=== PATIENT | female | born 1940 | race Caucasian/White ===

== ENCOUNTER 2019-02-09 12:04 | Inpatient (IN) ==
[2019-02-09] MEDS ORDERED: 0.9 % Sodium Chloride 500 ML IVC ONE (12:10)
[2019-02-09] MEDS ORDERED: Insulin Regular, Human 100 UNIT/ML SQ ONE (12:12)
--- NOTE | 2019-02-09 12:13 | Emergency Department Note ---
Disposition Clinical Impression: Hyperglycemia Dementia Qualifiers: Dementia type: unspecified type Dementia behavioral disturbance: without behavioral disturbance Qualified Code(s): F03.90 - Unspecified dementia without behavioral disturbance Disposition: Admitted As Inpatient Condition: Good Referrals: NONE,PCP [Primary Care Provider] - Forms: ED Satisfaction Letter, Work/School Release Time of Disposition: 13:08 General Adult HPI - General Chief complaint: ED General Medical Stated complaint: High glucose Time Seen by Provider: 02/09/19 12:09 Source: patient, EMS Mode of arrival: EMS Limitations: physical limitation (Dementia) Nursing Notes Reviewed: Yes Vital Signs Reviewed: Yes - History of Present Illness HPI Narrative: Patient presents by EMS with report that she had to be brought in because she "cannot live by herself" due to dementia. Her roommate is being brought in for shortness of breath and elevated blood sugar and she would not be able to care for herself. They did find that she to have a blood sugar reading of 580 and have brought her in for evaluation. When she arrives here she states that "I feel pretty good" but that yesterday she was "weak". She denies any other specific complaints. She denies headache or trouble with vision. She denies chest pain or palpitations. She does report occasional cough but is nonproductive. She denies any associated chest pain, fevers or chills. She denies any abdominal pain but pupils are for up to show bandage over a chronic right lateral abdominal wound. She is able to explain this is after surgery she had 5 months ago and she has been followed for a nonhealing area of lateral aspect of her abdominal incision. She denies nausea, vomiting or diarrhea. She does admit to increased thirst and increased urination. She is not having dysuria or blood in the urine. She believes she is been on her normal medicines but cannot say what any of them are. She relates that she has been having "trouble taking care of of her Khris". - Related Data Home Medications Medication Instructions Recorded Confirmed Unable To Obtain [Unable to Obtain] 06/02/17 06/02/17 Allergies Allergy/AdvReac Type Severity Reaction Status Date / Time No Known Allergies Allergy Verified 05/07/17 19:19 All systems ED: reviewed and negative except as stated. Past Medical History - Past Medical History Attestation: Yes The following information was validated with the patient. Source: patient, old records reviewed, nursing notes reviewed Medical history: Reports: diabetes, hyperlipidemia, hypertension, peripheral artery disease Surgical history: Reports: cholecystectomy, other (Right side infection with drainage and wound care), LE stent (s) Psychiatric history: Reports: no psych history - Social History Smoking Status: Never smoker Smokeless Tobacco Status: No Alcohol use: Reports: none Drug use: Reports: none Physical Exam - General Limitations: physical limitation (Dementia) General appearance: alert, in no apparent distress - Head Head exam: atraumatic, normocephalic, normal inspection - Eye Eye exam: Present: normal appearance, PERRL, EOMI - ENT ENT exam: normal exam, normal oropharynx, mucous membranes moist - Neck Neck exam: Present: normal inspection, full ROM, trachea midline - Chest Chest inspection: Present: normal inspection, symmetric chest wall rise - Respiratory Respiratory exam: Present: normal lung sounds bilaterally. Absent: respiratory distress, wheezes, prolonged expiratory phase - Cardiovascular Cardiovascular exam: Present: regular rate, normal rhythm, normal heart sounds. Absent: tachycardia - Abdominal Exam Abdominal exam: Present: soft, Non-Tender, normal bowel sounds, other (Patient has a 1 cm opening with a yellow clearish drainage from the lateral aspect of her lateral right abdominal horizontal incision. She has a bandage over this area affixed with tape.). Absent: tenderness, distention, guarding, rebound, rigidity, Hernandez's sign, tenderness at McBurney's Point - Extremities Exam Extremities exam: Present: normal inspection, full ROM, normal capillary refill. Absent: tenderness, pedal edema, calf tenderness - Expanded Lower Extremity Exam Neurovascular/Tendon exam: Present: normal capillary refill Gait: not tested/not observed - Back Exam Back exam: Present: normal inspection, full ROM. Absent: tenderness - Neurological Exam Neurological exam: Present: alert, CN II-XII intact - Psychiatric Psychiatric exam: Present: normal affect, normal mood. Absent: agitated, anxious - Skin Skin exam: Present: warm, dry, intact, normal color. Absent: diaphoresis, p allor Course Course Narrative: Patient is started on hydration and basic metabolic evaluation is ordered for labs and a urinalysis. Given her elevated blood sugar we started IV fluids and a dose of insulin. She will likely need observation for control of her diabetes as well as social work administrator evaluation. 1315: With return of all testing, care is discussed with Dr. Menjivar and verbal orders have been obtained for her observation and social service consultation. Vital Signs Temperature 98.1 F 02/09/19 12:09 Pulse Rate 70 02/09/19 12:09 Respiratory Rate 16 02/09/19 12:09 Blood Pressure 171/68 02/09/19 12:09 O2 Sat by Pulse Oximetry 99 02/09/19 12:09 Temperature 98.1 F 02/09/19 12:09 Pulse Rate 70 02/09/19 12:09 Respiratory Rate 16 02/09/19 12:09 Blood Pressure 171/68 02/09/19 12:09 O2 Sat by Pulse Oximetry 99 02/09/19 12:09 Oxygen Delivery Oxygen Delivery Room Air Medical Decision Making - Medical Records Medical records reviewed: Yes I reviewed the patient's medical records. - Lab Data Lab results reviewed: Yes I reviewed the patient's lab results. Result diagrams: 02/09/19 12:27 02/09/19 12:27 Lab Results 02/09/19 02/09/19 02/09/19 Range/Units 12:27 12:27 12:27 WBC 6.1 (4.3-11.1) K/mcL RBC 4.57 (3.82-4.97) M/mcL Hgb 12.6 (11.5-15.4) g/dL Hct 38.3 (35.3-44.9) % MCV 83.8 (83.0-100.0) fL MCH 27.6 L (28.0-33.3) pg MCHC 32.9 (31.6-35.5) g/dL RDW 14.7 H (11.5-14.5) % Plt Count 180 (140-400) K/mcL MPV 11.9 (9.4-12.4) fL Immature Gran % 0.2 (0-4) % Seg Neutrophils % 66.2 % Lymphocytes % 24.2 % Monocytes % 7.1 % Eosinophils % 1.8 % Basophils % 0.5 % Neutrophils # 4.0 (1.6-8.9) K/mcL Lymphocytes # 1.5 (0.6-4.6) K/mcL Monocytes # 0.4 (0.0-1.3) K/mcL Eosinophils # 0.1 (0.0-0.6) K/mcL Basophils # 0.0 (0.0-0.2) K/mcL VBG pH (7.32-7.42) pH Units VBG pCO2 (41-51) mmHg VBG pO2 (25-50) mmHg VBG HCO3 (21-27) mEq/L Sodium 129 L (136-145) mEq/L Potassium 4.3 (3.5-5.1) mEq/L Chloride 93 L (98-107) mEq/L Carbon Dioxide 27 (23-29) mEq/L BUN 15 (8-23) mg/dL Creatinine 1.16 (0.60-1.20) mg/dL Est GFR ( Amer) 55 L (> 60) Est GFR (Non-Af Amer) 45 L (> 60) BUN/Creatinine Ratio 13 (6-26) Glucose 537 H* (70-105) mg/dL Calculated Osmolality 293 (280-300) Calcium 9.5 (8.6-10.3) mg/dL Beta-Hydroxybutyric Acd 0.39 H (0.02-0.27) mmol/L 02/09/19 Range/Units 12:36 WBC (4.3-11.1) K/mcL RBC (3.82-4.97) M/mcL Hgb (11.5-15.4) g/dL Hct (35.3-44.9) % MCV (83.0-100.0) fL MCH (28.0-33.3) pg MCHC (31.6-35.5) g/dL RDW (11.5-14.5) % Plt Count (140-400) K/mcL MPV (9.4-12.4) fL Immature Gran % (0-4) % Seg Neutrophils % % Lymphocytes % % Monocytes % % Eosinophils % % Basophils % % Neutrophils # (1.6-8.9) K/mcL Lymphocytes # (0.6-4.6) K/mcL Monocytes # (0.0-1.3) K/mcL Eosinophils # (0.0-0.6) K/mcL Basophils # (0.0-0.2) K/mcL VBG pH 7.42 (7.32-7.42) pH Units VBG pCO2 42 (41-51) mmHg VBG pO2 55 H (25-50) mmHg VBG HCO3 27 (21-27) mEq/L Sodium (136-145) mEq/L Potassium (3.5-5.1) mEq/L Chloride (98-107) mEq/L Carbon Dioxide (23-29) mEq/L BUN (8-23) mg/dL Creatinine (0.60-1.20) mg/dL Est GFR ( Amer) (> 60) Est GFR (Non-Af Amer) (> 60) BUN/Creatinine Ratio (6-26) Glucose (70-105) mg/dL Calculated Osmolality (280-300) Calcium (8.6-10.3) mg/dL Beta-Hydroxybutyric Acd (0.02-0.27) mmol/L
[2019-02-09] MEDS ORDERED: 0.9 % Sodium Chloride 1,000 ML IVC SCH ×2 (12:15→16:20)
[2019-02-09 12:35] LABS: Basophils % 0.5 %; Eosinophils # 0.1 K/mcL (0.0-0.6); Eosinophils % 1.8 %; Hematocrit 38.3 % (35.3-44.9); Hemoglobin 12.6 g/dL (11.5-15.4); Immature Granulocytes % 0.2 % (0-4); Lymphocytes # 1.5 K/mcL (0.6-4.6); Lymphocytes % 24.2 %; Mean Corpuscular HGB Conc 32.9 g/dL (31.6-35.5); Mean Corpuscular Hemoglobin 27.6 pg (28.0-33.3); Mean Corpuscular Volume 83.8 fL (83.0-100.0); Mean Platelet Volume 11.9 fL (9.4-12.4); Monocytes # 0.4 K/mcL (0.0-1.3); Monocytes % 7.1 %; Platelet Count 180 K/mcL (140-400); Red Blood Count 4.57 M/mcL (3.82-4.97); Red Cell Distribution Width 14.7 % (11.5-14.5); Segmented Neutrophils % 66.2 %; White Blood Count 6.1 K/mcL (4.3-11.1)
[2019-02-09 12:40] LABS: VBG HCO3 27 mEq/L (21-27); VBG PCO2 42 mmHg (41-51); VBG PH 7.42 pH Units (7.32-7.42); VBG PO2 55 mmHg (25-50)
[2019-02-09 13:05] LABS: Calcium 9.5 mg/dL (8.6-10.3); Potassium 4.3 mEq/L (3.5-5.1)
[2019-02-09 15:32] LABS: Bilirubin,Urine Negative (Negative); Blood,Urine Trace-intact (Negative); Clarity,Urine Cloudy (Clear); Color,Urine Yellow (Yellow); Glucose,Urine (UA) 500 mg/dL (Normal); Ketones,Urine Negative (Negative); Leukocyte Esterase,Urine Negative (Negative); Nitrite,Urine Negative (Negative); Protein,Urine 30 mg/dL (Neg-Trace); Specific Gravity,Urine 1.015 (1.010-1.025); Urobilinogen,Urine Normal (Normal)
[2019-02-09 15:38] LABS: RBC,Urine 0-3 per hpf (0-3); Squamous Epithelial Cell,Urine Many per lpf (None-Few)
[2019-02-09 15:39] LABS: Amorphous Sediment,Urine Moderate (Few); Bacteria,Urine Many per hpf (None-Few); Mucus,Urine Few (Few)
[2019-02-09] MEDS ORDERED: Ondansetron ODT 4 MG TAB.RAPDIS SL PRN (16:20)
[2019-02-09] MEDS ORDERED: MOM Conc 10 ML UD.LIQ PO PRN (16:20)
[2019-02-09] MEDS ORDERED: D5% in Water 1,000 ML IVC PRN (16:20)
[2019-02-09] MEDS ORDERED: Dextrose Gel 15 GM/37.5 ML TUBE PO PRN ×2 (16:20)
[2019-02-09] MEDS ORDERED: Mag Hydrox/Al Hydrox/Simeth 30 ML UDC PO PRN (16:20)
[2019-02-09] MEDS ORDERED: *HR* Dextrose 50 % in Water (Vial) 50 ML VIAL IVP PRN (16:20)
[2019-02-09] MEDS ORDERED: Naloxone 0.4 MG/ML INJ IVP PRN (16:20)
[2019-02-09] MEDS: 0.45 % Sodium Chloride w/KCl 20 MEQ/1,000 ML MLS IVC SCH (17:58)
[2019-02-09] MEDS: Insulin LISPRO 300 UNITS/3 ML VIAL SQ SCH (18:03)
[2019-02-09 21:18] LABS: Estimated Average Glucose 398 mg/dl
[2019-02-10 07:32] LABS: Basophils % 0.6 %; Eosinophils # 0.2 K/mcL (0.0-0.6); Eosinophils % 3.2 %; Hematocrit 39.7 % (35.3-44.9); Hemoglobin 12.6 g/dL (11.5-15.4); Immature Granulocytes % 0.2 % (0-4); Lymphocytes # 1.5 K/mcL (0.6-4.6); Lymphocytes % 30.2 %; Mean Corpuscular HGB Conc 31.7 g/dL (31.6-35.5); Mean Corpuscular Hemoglobin 27.3 pg (28.0-33.3); Mean Corpuscular Volume 85.9 fL (83.0-100.0); Mean Platelet Volume 12.1 fL (9.4-12.4); Monocytes # 0.4 K/mcL (0.0-1.3); Monocytes % 7.9 %; Neutrophils # 2.9 K/mcL (1.6-8.9); Platelet Count 163 K/mcL (140-400); Red Blood Count 4.62 M/mcL (3.82-4.97); Segmented Neutrophils % 57.9 %; White Blood Count 4.9 K/mcL (4.3-11.1)
[2019-02-10 07:58] LABS: BUN/Creatinine Ratio 10 (6-26); Blood Urea Nitrogen 10 mg/dL (8-23); Calcium 8.8 mg/dL (8.6-10.3); Carbon Dioxide 27 mEq/L (23-29); Chloride 99 mEq/L (98-107); Glucose 343 mg/dL (70-105); Osmolality,Calculated 289 (280-300); Potassium 4.2 mEq/L (3.5-5.1); Sodium 133 mEq/L (136-145); eGFR For African Americans > 60 (> 60); eGFR For Non-African Americans 55 (> 60)
[2019-02-10 08:00] LABS: Chol/HDL Ratio 6.2 (0-4.9); Cholesterol 203 mg/dL (< 200); HDL Cholesterol 33 mg/dL (40-59); Magnesium 1.5 mg/dL (1.6-2.6); Triglycerides 480 mg/dL (< 150)
[2019-02-10] MEDS: Insulin LISPRO 300 UNITS/3 ML VIAL SQ SCH ×3 (08:56→16:59)
[2019-02-10] MEDS: 0.45 % Sodium Chloride w/KCl 20 MEQ/1,000 ML MLS IVC SCH ×2 (09:03→20:35)
[2019-02-10] MEDS ORDERED: *HR* Labetalol 100 MG/20 ML MDV IVP ONE (15:09)
--- NOTE | 2019-02-10 15:34 | Internal Med History&Physical ---
Date of Encounter: 02/10/19 Time of Encounter: 15:05 Assessment and Plan (1) Hyperglycemia Current visit: Yes Status: Acute Blood sugar was 537 in emergency room. Ketosis without acidosis was noted. Home medication list is not available at this time. She will be started on IV fluids and basal insulin with Accu-Cheks and SSI. (2) DM type 2 (diabetes mellitus, type 2) Current visit: Yes Status: Chronic Poorly controlled. Hemoglobin A1c was 15.5% in emergency room. Start basal insulin and Accu-Cheks with SSI. Home medication list will be obtained. Qualifiers: Diabetes mellitus roasterman insulin use: unspecified mcc insulin use status Diabetes mellitus complication status: without complication Qualified Code(s): E11.9 - Type 2 diabetes mellitus without complications (3) Hyponatremia Current visit: Yes Status: Acute Pseudohyponatremia from hyperglycemia. Expect normalization of sodium with normalization of blood sugar. (4) Hypomagnesemia Current visit: Yes Status: Acute Magnesium level slightly low at 1.5. Supplemental magnesium will be given. (5) Low vitamin D level Current visit: Yes Status: Acute Vitamin D level returned low at 7. Supplemental vitamin D will be ordered. (6) Dementia Current visit: Yes Status: Acute MMSE exam will be ordered. Qualifiers: Dementia type: unspecified type Dementia behavioral disturbance: without behavioral disturbance Qualified Code(s): F03.90 - Unspecified dementia with out behavioral disturbance (7) Azotemia Current visit: Yes Status: Acute BUN and creatinine were 15 and 1.16 respectively in ER with estimated GFR 45. IV fluids have been ordered. (8) Hypertension Current visit: Yes Status: Chronic Poorly controlled at present with most recent blood pressure 196/91. IV labetalol has been ordered. Home medication list will be obtained. Qualifiers: Hypertension type: essential hypertension Qualified Code(s): I10 - Essential (primary) hypertension Internal Medicine - H&P: HPI Chief complaint: Weakness, hyperglycemia, right upper quadrant pain Admitted From: Emergency Dept Plans for Post Hospital Care: Home History of present illness: Ms. Cortez is a 78 year old female who came to emergency room after developing worsening right upper quadrant discomfort, weakness, and hyperglycemia. She was evaluated and found to have blood sugar 537 MG/DL and significant bacteriuria. She was admitted to [facility] floor for ongoing care needs. She has significant dementia and is a fair historian at best. Her significant other supplies some of the history. She had laparoscopic cholecystectomy January 2015 followed by right upper quadrant abscess. 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 The fistula August initially showed significant healing but has reopened since discharge from the SNF 3 months ago. She denies disorders of her liver or exocrine pancreas. Past Med Surg Social Fam HX - Past Medical History Medical history: diabetes, hyperlipidemia, hypertension, peripheral artery disea se Additional medical history: PT IS UNABLE TO GIVE ACURATE MEDICAL HISTORY. Psychiatric history: no psych history - Past Surgical History Surgical History: cholecystectomy, other (Right side infection with drainage and wound care), LE stent (s) Additional surgical history: UNKNOWN - Social History Smoking Status: Never smoker Smokeless Tobacco Status: No Alcohol use: none Drug use: none Internal Medicine - H&P: Meds Unable To Obtain [Unable to Obtain] 06/02/17 [History] Allergy/AdvReac Type Severity Reaction Status Date / Time No Known Allergies Allergy Verified 05/07/17 19:19 All Systems PM: A 10-system review of systems was performed and is negative for pertinent findings except as documented above in the HPI. Review of systems: Gen.: She states her weight is been stable for several months Cardiovascular: She has history of hypertension. She had right carotid endarterectomy August 2016. She has bilateral renal artery stenosis with stents placed. She denies hypertension heart failure DVT or pulmonary embolus Respiratory: She is a lifelong nonsmoker and denies chronic lung disease GI: As per history of present illness : She has chronic kidney disease stage III. She denies other kidney or bladder disorders Neurologic: She has dementia. She denies large distribution strokes or seizures Endocrine she was diagnosed with DM 2 many years ago but does not recall the exact date. She has hyperlipidemia but denies thyroid disease Hematology/oncology: She has had anemia in the past. She denies internal malignancies or other blood disorders. Psychiatric: She has depression but denies anxiety other mental health issues [place] skeletal: She has DJD but denies gout or other bone joint or muscle disorders. - Constitutional Vitals: Temp Pulse Resp BP Pulse Ox 98.3 F 98 18 196/91 95 02/10/19 15:10 02/10/19 15:10 02/10/19 15:10 02/10/19 15:11 02/10/19 15:10 Exam: Gen.: She is a well-developed well-nourished female resting comfortably in bed who appears in no acute distress HEENT: Head is atraumatic and normocephalic. Eyes: EOMI. There is no scleral icterus. Mouth: Mucosa is moist. Neck: Supple and nontender. There is no thyromegaly or adenopathy noted. Heart: Regular without murmurs gallops or ectopics Lungs: No wheezes or crackles are heard. Abdomen: Soft and nontender. No masses or guarding are noted. She has gauze bandage covering a fistulous opening in the skin in her right upper anterolateral abdominal area. There is no purulent drainage seen. There is no significant surrounding erythema. Extremities: There is no cyanosis edema or clubbing noted. Dorsalis pedis and posterior tibial pulses are trace to 1+ palpable bilaterally. Neurologic: Mental status: She is talkative and a fair historian at best. She does not remember several details of her history. She cannot do simple money math. Cranial nerves: Smile is symmetric. Forehead wrinkles bilaterally. Tongue protrudes midline. EOMI. Motor: There is no pronator drift. Cerebellar: Finger to nose is intact bilaterally. Skin: Warm and dry Internal Med - H&P Results - Labs CBC & Chem 7: 02/10/19 07:03 02/10/19 07:03 Labs: Short CBC 02/10/19 Range/Units 07:03 WBC 4.9 (4.3-11.1) K/mcL Hgb 12.6 (11.5-15.4) g/dL Hct 39.7 (35.3-44.9) % Plt Count 163 (140-400) K/mcL Neutrophils # 2.9 (1.6-8.9) K/mcL BMP 02/10/19 07:03 Sodium 133 L Potassium 4.2 Chloride 99 Carbon Dioxide 27 BUN 10 Creatinine 0.98 Glucose 343 H Calcium 8.8 Urine 02/09/19 Range/Units 15:15 Urine Color Yellow (Yellow) Urine Clarity Cloudy A (Clear) Urine pH 6.0 (5.0-8.0) pH Units Ur Specific [place] 1.015 (1.010-1.025) Urine Protein 30 H (Neg-Trace) mg/dL Urine Glucose (UA) 500 H (Normal) mg/dL - ABG Interpretation ABG results: 02/09/19 12:36 VBG pH 7.42 VBG pCO2 42 VBG pO2 55 H VBG HCO3 27
[2019-02-10] MEDS: Magnesium Oxide 400 MG TABLET PO SCH (16:56)
[2019-02-10] MEDS: Cholecalciferol (D-3) 1,000 UNIT (25MCG) TABLET PO SCH (16:56)
[2019-02-10] MEDS: Insulin DETEMIR 100 UNIT/ML X5UNITS SQ SCH (20:39)
[2019-02-11] MEDS ORDERED: *HR* Labetalol 100 MG/20 ML MDV IVP ONE (00:37)
[2019-02-11 05:59] LABS: Basophils % 0.3 %; Eosinophils % 0.5 %; Hematocrit 38.9 % (35.3-44.9); Hemoglobin 12.5 g/dL (11.5-15.4); Immature Granulocytes % 0.3 % (0-4); Lymphocytes % 17.2 %; Mean Corpuscular HGB Conc 32.1 g/dL (31.6-35.5); Mean Corpuscular Hemoglobin 27.8 pg (28.0-33.3); Mean Corpuscular Volume 86.4 fL (83.0-100.0); Mean Platelet Volume 12.8 fL (9.4-12.4); Monocytes # 0.4 K/mcL (0.0-1.3); Neutrophils # 4.4 K/mcL (1.6-8.9); Platelet Count 185 K/mcL (140-400); Red Cell Distribution Width 14.8 % (11.5-14.5); Segmented Neutrophils % 75.7 %; White Blood Count 5.9 K/mcL (4.3-11.1)
[2019-02-11 06:30] LABS: Alanine Aminotransferase 21 Units/L (7-52); Albumin 3.5 g/dL (3.5-5.7); Alkaline Phosphatase 95 Units/L (34-104); Aspartate Amino Transferase 12 Units/L (13-39); BUN/Creatinine Ratio 13 (6-26); Bilirubin,Total 0.3 mg/dL (0.3-1.0); Blood Urea Nitrogen 14 mg/dL (8-23); Calcium 9.3 mg/dL (8.6-10.3); Carbon Dioxide 28 mEq/L (23-29); Chloride 96 mEq/L (98-107); Globulin 3.6 g/dL (2.4-3.5); Glucose 377 mg/dL (70-105); Osmolality,Calculated 288 (280-300); Potassium 4.7 mEq/L (3.5-5.1); Sodium 131 mEq/L (136-145); Total Protein 7.1 g/dL (6.4-8.9); eGFR For African Americans > 60 (> 60); eGFR For Non-African Americans 51 (> 60)
[2019-02-11] MEDS: Cholecalciferol (D-3) 1,000 UNIT (25MCG) TABLET PO SCH (08:13)
[2019-02-11] MEDS: Insulin LISPRO 300 UNITS/3 ML VIAL SQ SCH ×3 (08:13→17:14)
[2019-02-11] MEDS: Magnesium Oxide 400 MG TABLET PO SCH (08:13)
[2019-02-11] MEDS: Insulin DETEMIR 100 UNIT/ML X5UNITS SQ SCH ×2 (08:18→19:53)
--- NOTE | 2019-02-11 11:22 | Internal Med Progress Note ---
Date of Encounter: 02/11/19 Time of Encounter: 11:10 - Assessment and plan (1) Hyperglycemia Current Visit: Yes Status: Acute Assessment and plan: February 11. Blood sugars have improved but are still above desirable level. Increase Levemir to 20 units twice a day. (2) DM type 2 (diabetes mellitus, type 2) Current Visit: Yes Status: Chronic Assessment and plan: February 11. As above Qualifiers: Diabetes mellitus nursing home insulin use: unspecified nursing home insulin use status Diabetes mellitus complication status: without complication Qualified Code(s): E11.9 - Type 2 diabetes mellitus without complications (3) Hyponatremia Current Visit: Yes Status: Acute Assessment and plan: February 11. Resolving as expected with improved blood sugars. Continue to monitor. (4) Hypomagnesemia Current Visit: Yes Status: Acute Assessment and plan: February 11. Continue magnesium oxide. (5) Low vitamin D level Current Visit: Yes Status: Acute Assessment and plan: February 11. Continue supplemental vitamin D. (6) Dementia Current Visit: Yes Status: Acute Assessment and plan: February 11. MMSE score of 13/30. Qualifiers: Dementia type: unspecified type Dementia behavioral disturbance: without behavioral disturbance Qualified Code(s): F03.90 - Unspecified dementia without behavioral disturbance (7) Azotemia Current Visit: Yes Status: Acute Assessment and plan: February 11. Stable. Continue to monitor renal indices. (8) Hypertension Current Visit: Yes Status: Chronic Assessment and plan: February 11. Home medication list obtained and reviewed. Restart metoprolol 25 mg twice a day and diltiazem 120 mg daily. Qualifiers: Hypertension type: essential hypertension Qualified Code(s): I10 - Essential (primary) hypertension (9) Fistula Current Visit: Yes Status: Chronic Assessment and plan: February 11. I spoke with Dr. Marin's office staff about treatment plan. She had a fistulogram October 2018 showing the internal fistula ending in soft tissue. Attempted fistulectomy surgery October 2018 unsuccessful. Follow-up with surgeon as directed. (10) Choledocholithiasis Current Visit: Yes Status: Acute Assessment and plan: February 11. MRI/MRCP today showed multiple filling defects in the common bile duct measuring up to 5 mm compatible with choledocholithiasis but no significant biliary ductal dilatation seen. Her surgeon can discuss treatment options. - Subjective Interval history: February 11. She has no new complaints. - Constitutional Vitals: Temp Pulse Resp BP Pulse Ox 98.2 F 89 18 148/73 94 02/11/19 07:48 02/11/19 07:48 02/11/19 07:48 02/11/19 07:48 02/11/19 07:48 Exam: She is resting comfortably in bed and appears in no acute distress. Her affect is bright and cheerful. I reviewed her MRI report, medications, and lab results. Internal Medicine: Result - Labs CBC & Chem 7: 02/11/19 05:14 02/11/19 05:14 Labs: Short CBC 02/11/19 Range/Units 05:14 WBC 5.9 (4.3-11.1) K/mcL Hgb 12.5 (11.5-15.4) g/dL Hct 38.9 (35.3-44.9) % Plt Count 185 (140-400) K/mcL Neutrophils # 4.4 (1.6-8.9) K/mcL BMP 02/11/19 05:14 Sodium 131 L Potassium 4.7 Chloride 96 L Carbon Dioxide 28 BUN 14 Creatinine 1.04 Glucose 377 H Calcium 9.3 Liver Function 02/11/19 Range/Units 05:14 Total Bilirubin 0.3 (0.3-1.0) mg/dL AST 12 L (13-39) Units/L ALT 21 (7-52) Units/L Alkaline Phosphatase 95 (34-104) Units/L Albumin 3.5 (3.5-5.7) g/dL - Impressions Impressions Abdomen MRI 02/11/19 06:30 IMPRESSION: 1. Multiple filling defects within the distal common bile duct measuring up to 5 mm compatible with choledocholithiasis. No significant biliary ductal dilatation. 2. 8 mm cystic lesion along the pancreatic body is likely unchanged from prior CT in 2015. This is nonspecific but could represent a side branch IPMN. The findings were sent to the [facility]iology [facility] at 7:50 am on 02/11/2019 to be communicated to a licensed caregiver. D/ / Dustin Vo MD / Dustin Vo MD Interpreting Provider: Dustin Vo MD Consult Discharge Plan - Plan Referrals: NONE,PCP [Primary Care Provider] - 1 week
[2019-02-11] MEDS: Diltiazem CD (24hr) 120 MG CAPSULE PO SCH (12:39)
--- NOTE | 2019-02-11 20:53 | Emergency Department Note ---
START Narrative - START START: I was called to the bedside on the inpatient unit to evaluate the patient who reportedly had a fall. Patient was in bed and she was arguing with family members. She tried to get out of the bed and her footing was slipping on the floor and she ended up sliding out of the bed and landing on her buttocks. She is very clear and coherent with a normal mental status and normal neurologic exam at the time I see her. She is very clear that she did not hit her head and that she just could not get her feet to stick to the floor and they slid out from under and she slid off the side of the bed onto her buttocks. No complete of head injury or head pain. No neck pain. She does not even have pain to her back or buttocks or hips. I was called to evaluate the patient because she had a fall while in-house. Patient story does not concern me for head injury. Her story and her physical exam, which is completely normal and shows no indications of injury to the head or cervical spine or thoracic spine or lumbar spine or pelvis or hips or extremities or anywhere else, do not warrant imaging studies of any kind. I recommended reevaluation of the patient serially and if any changes then she needs to be reevaluated either by myself or the hospitalist at which time testing could be reconsidered.
[2019-02-11] MEDS ORDERED: ALPRAZolam 0.5 MG TABLET PO ONE (21:42)
[2019-02-11] MEDS: *HR* Metoprolol 5 MG/5 ML VIAL IVP ONE ×2 (22:23→22:41)
[2019-02-11] MEDS: *HR* LORazepam 2 MG/ML VIAL IVP ONE ×2 (22:23→22:41)
[2019-02-11] MEDS ORDERED: *HR* LORazepam 2 MG/ML VIAL IM ONE (22:42)
[2019-02-12] MEDS: Cholecalciferol (D-3) 1,000 UNIT (25MCG) TABLET PO SCH (08:17)
[2019-02-12] MEDS: Diltiazem CD (24hr) 120 MG CAPSULE PO SCH (08:18)
[2019-02-12] MEDS: Insulin LISPRO 300 UNITS/3 ML VIAL SQ SCH ×3 (08:18→16:44)
[2019-02-12] MEDS: Magnesium Oxide 400 MG TABLET PO SCH (08:18)
--- NOTE | 2019-02-12 09:43 | Internal Med Progress Note ---
Date of Encounter: 02/12/19 Time of Encounter: 09:35 - Assessment and plan (1) Hyperglycemia Current Visit: Yes Status: Acute Assessment and plan: February 3. Blood sugars have improved but are still above desirable level. Increase Levemir to 20 units twice a day. February 4. Blood sugars still above desirable level. Increase Levemir to 30 units twice a day. (2) DM type 2 (diabetes mellitus, type 2) Current Visit: Yes Status: Chronic Assessment and plan: February 3. As above Qualifiers: Diabetes mellitus long goods drier insulin use: unspecified usp insulin use status Diabetes mellitus complication status: without complication Qualified Code(s): E11.9 - Type 2 diabetes mellitus without complications (3) Hyponatremia Current Visit: Yes Status: Acute Assessment and plan: February 11. Resolving as expected with improved blood sugars. Continue to monitor. February 12. Recheck labs in a.m. (4) Hypomagnesemia Current Visit: Yes Status: Acute Assessment and plan: February 11. Continue magnesium oxide. February 12. Recheck labs in a.m. (5) Low vitamin D level Current Visit: Yes Status: Acute Assessment and plan: February 11. Continue supplemental vitamin D. (6) Dementia Current Visit: Yes Status: Acute Assessment and plan: February 11. MMSE score of 13/30. Qualifiers: Dementia type: unspecified type Dementia behavioral disturbance: without behavioral disturbance Qualified Code(s): F03.90 - Unspecified dementia without behavioral disturbance (7) Azotemia Current Visit: Yes Status: Acute Assessment and plan: February 3. Stable. Continue to monitor renal indices. February 12. Recheck labs in a.m. (8) Hypertension Current Visit: Yes Status: Chronic Assessment and plan: February 11. Home medication list obtained and reviewed. Restart metoprolol 25 mg twice a day and diltiazem 120 mg daily. February 12. Blood pressures above desirable range. Increase metoprolol and diltiazem. Qualifiers: Hypertension type: essential hypertension Qualified Code(s): I10 - Essential (primary) hypertension (9) Fistula Current Visit: Yes Status: Chronic Assessment and plan: February 11. I spoke with Dr. Marin's office staff about treatment plan. She had a fistulogram October 2018 showing the internal fistula ending in soft tissue. Attempted fistulectomy surgery October 2018 unsuccessful. Follow-up with surgeon as directed. (10) Choledocholithiasis Current Visit: Yes Status: Acute Assessment and plan: February 11. MRI/MRCP today showed multiple filling defects in the common bile duct measuring up to 5 mm compatible with choledocholithiasis but no significant biliary ductal dilatation seen. Her surgeon can discuss treatment options. - Subjective Interval history: February 11. She has no new complaints. February 12. She has no complaints at this time. She was changed to a different room last evening after becoming upset when a verbal argument broke out between her significant other and his sister. She is sitting in a wheelchair now beside the bed of her significant other - Constitutional Vitals: Temp Pulse Resp BP Pulse Ox 98.0 F 80 17 172/80 98 02/12/19 06:30 02/12/19 06:30 02/12/19 06:30 02/12/19 06:30 02/12/19 06:30 Exam: She appears calm and in no distress. Extremities show no edema. Heart is regular without murmurs gallops or ectopics. Lungs are clear. I reviewed her medications and lab results. Internal Medicine: Result - Labs CBC & Chem 7: 02/11/19 05:14 02/11/19 05:14 Consult Discharge Plan - Plan Referrals: NONE,PCP [Primary Care Provider] - 1 week
[2019-02-12] MEDS: Insulin DETEMIR 100 UNIT/ML X5UNITS SQ SCH ×3 (10:28→21:25)
[2019-02-12] MEDS: 0.45 % Sodium Chloride w/KCl 20 MEQ/1,000 ML MLS IVC SCH ×2 (11:50→12:03)
[2019-02-12] MEDS ORDERED: ALPRAZolam 0.5 MG TABLET PO PRN (15:49)
[2019-02-12] MEDS ORDERED: Insulin DETEMIR 100 UNIT/ML X5UNITS SQ SCH (21:00)
[2019-02-13 06:02] LABS: Basophils % 0.6 %; Eosinophils # 0.2 K/mcL (0.0-0.6); Eosinophils % 3.3 %; Hematocrit 42.6 % (35.3-44.9); Hemoglobin 13.6 g/dL (11.5-15.4); Immature Granulocytes % 0.3 % (0-4); Lymphocytes # 2.3 K/mcL (0.6-4.6); Lymphocytes % 32.6 %; Mean Corpuscular HGB Conc 31.9 g/dL (31.6-35.5); Mean Corpuscular Hemoglobin 27.7 pg (28.0-33.3); Mean Corpuscular Volume 86.8 fL (83.0-100.0); Mean Platelet Volume 12.1 fL (9.4-12.4); Monocytes # 0.5 K/mcL (0.0-1.3); Monocytes % 7.8 %; Neutrophils # 3.9 K/mcL (1.6-8.9); Platelet Count 242 K/mcL (140-400); Red Blood Count 4.91 M/mcL (3.82-4.97); Red Cell Distribution Width 15.2 % (11.5-14.5); Segmented Neutrophils % 55.4 %
[2019-02-13 06:23] LABS: BUN/Creatinine Ratio 20 (6-26); Blood Urea Nitrogen 21 mg/dL (8-23); Calcium 9.6 mg/dL (8.6-10.3); Carbon Dioxide 33 mEq/L (23-29); Chloride 100 mEq/L (98-107); Glucose 126 mg/dL (70-105); Magnesium 1.7 mg/dL (1.6-2.6); Osmolality,Calculated 293 (280-300); Potassium 3.6 mEq/L (3.5-5.1); Sodium 139 mEq/L (136-145); eGFR For African Americans > 60 (> 60); eGFR For Non-African Americans 51 (> 60)
[2019-02-13] MEDS: Magnesium Oxide 400 MG TABLET PO SCH (08:58)
[2019-02-13] MEDS: Insulin LISPRO 300 UNITS/3 ML VIAL SQ SCH ×2 (08:58→14:07)
[2019-02-13] MEDS: Insulin DETEMIR 100 UNIT/ML X5UNITS SQ SCH (08:58)
[2019-02-13] MEDS: Cholecalciferol (D-3) 1,000 UNIT (25MCG) TABLET PO SCH (08:58)
[2019-02-13] MEDS ORDERED: Diltiazem CD (24hr) 240 MG CAPSULE PO SCH (09:00)
[2019-02-13 10:23] VITALS: BP 195/81
--- NOTE | 2019-02-13 10:47 | Discharge Summary ---
Date of Encounter: 02/13/19 Time of Encounter: 10:20 - Discharge Diagnosis (1) Hyperglycemia Priority: Primary Status: Acute (2) DM type 2 (diabetes mellitus, type 2) Priority: Secondary Status: Chronic Qualifiers: Diabetes mellitus terminal gauger insulin use: unspecified terminal gauger insulin use status Diabetes mellitus complication status: without complication Qualified Code(s): E11.9 - Type 2 diabetes mellitus without complications (3) Hyponatremia Priority: Secondary Status: Resolved (4) Hypomagnesemia Priority: Secondary Status: Acute (5) Low vitamin D level Priority: Secondary Status: Chronic (6) Dementia Priority: Secondary Status: Chronic Qualifiers: Dementia type: unspecified type Dementia behavioral disturbance: without behavioral disturbance Qualified Code(s): F03.90 - Unspecified dementia without behavioral disturbance (7) Azotemia Priority: Secondary Status: Acute (8) Hypertension Priority: Secondary Status: Chronic Qualifiers: Hypertension type: essential hypertension Qualified Code(s): I10 - Essential (primary) hypertension (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 Cortez is a 78 year old female who came to emergency room after developing worsening right upper quadrant discomfort, weakness, and hyperglycemia. She was evaluated and found to have blood sugar 537 MG/DL and significant bacteriuria. She was admitted to [facility] floor for ongoing care needs. Initial orders were written by the emergency room physician. I saw her on February 10 and performed a history and physical. She was started on IV fluids. Basal insulin was initiated and Accu-Cheks with SSI also started. She had improvement in her hyperglycemia and ketosis resolved. She will be discharged to swing bed for further adjustment of her diabetic medication will be done. Hyponatremia resolved by day of discharge with improvement in blood sugar. Vitamin D level returned low at 7. She was started on supplemental vitamin D. Blood pressure was above desirable range. Diltiazem and metoprolol doses were increased. Blood pressure will continue to be monitored during her swing bed stay. Lisinopril was held because of azotemia. Creatinine decreased to 1.05 with estimated GFR rising to 51. Lisinopril will continue to be held to see if additional improvement can be achieved. She had MMSE with score of 13/30. She had occasional agitation and frequent confusion and required low-dose sedation. On February 13 she was stable for discharge to swing bed. She will have physical t herapy and occupational therapy evaluation with ongoing intervention. Blood pressure and diabetic medications will continue to be adjusted to improve her clinical status. - Time Spent with Patient Total time spent providing and/or coordinating discharge services: - Discharge Medications Prescriptions: New Metoprolol [Lopressor] 50 mg PO BID tablet Insulin LISPRO [HumaLOG] 0 units SQ TIDAC vial Insulin DETEMIR [Levemir] 30 unit SQ BID [id number] Docusate [Colace] 100 mg PO BID capsule Diltiazem CD (24hr) [Cardizem CD] 240 mg PO DAILY cap.er.24h Cholecalciferol (D-3) [Vitamin D] 5,000 unit PO DAILY tablet Continued Amitriptyline [Elavil] 25 mg PO HS Atorvastatin [Lipitor] 20 mg PO HS Fenofibrate [Tricor] 54 mg PO DAILY Ferrous Sulfate [Iron] 325 mg PO DAILY Insulin DETEMIR [Levemir] 0 unit Discontinued Lisinopril [Zestril] 20 mg PO DAILY Metoprolol [Lopressor] 25 mg PO BID Pantoprazole Sodium [Protonix] 40 mg PO DAILY Diltiazem HCl [Diltiazem 24Hr Cd] 120 mg PO DAILY Home Medications: Amitriptyline [Elavil] 25 mg PO HS 02/10/19 [History] Atorvastatin [Lipitor] 20 mg PO HS 02/10/19 [History] Fenofibrate [Tricor] 54 mg PO DAILY 02/10/19 [History] Ferrous Sulfate [Iron] 325 mg PO DAILY 02/10/19 [History] Insulin DETEMIR [Levemir] 0 unit 02/10/19 [History] Cholecalciferol (D-3) [Vitamin D] 5,000 unit PO DAILY tablet 02/13/19 [Rx] Diltiazem CD (24hr) [Cardizem CD] 240 mg PO DAILY cap.er.24h 02/13/19 [Rx] Docusate [Colace] 100 mg PO BID capsule 02/13/19 [Rx] Insulin DETEMIR [Levemir] 30 unit SQ BID [id number] 02/13/19 [Rx] Insulin LISPRO [HumaLOG] 0 units SQ TIDAC vial 02/13/19 [Rx] Metoprolol [Lopressor] 50 mg PO BID tablet 02/13/19 [Rx] Allergies/Adverse Reactions: Allergy/AdvReac Type Severity Reaction Status Date / Time No Known Allergies Allergy Verified 05/07/17 19:19 Date of admission: 02/09/19 18:59 Primary care physician: Jp Pollack NITRO WORKER Consults: 02/09/19 16:20 Consult to Appliance Fixer [CONS] Routine Reason for SW Consult: Evaluation for possible custodial placement. - Constitutional Vitals: Temp Pulse Resp BP Pulse Ox 97.9 F 81 18 195/81 95 02/13/19 10:18 02/13/19 10:18 02/13/19 10:18 02/13/19 10:18 02/13/19 10:18 - Patient Status Disposition: Transfer Hospital Swing Bed Condition: Good - Discharge Instructions Follow Up With: NONE,PCP [Primary Care Provider] - 1 week - Diet and Activity Activity: as per physical therapy Diet: diabetic diet
== END 2019-02-13 14:20 | disposition other institution (70) | DRG 638 ==
LOC: INPPIK 12:04 → EMEROOPIK 12:04 → INPPIK 16:14
PROVIDERS: ADMIT Internal Medicine; ATTEND Internal Medicine

== ENCOUNTER 2019-02-13 14:09 | Inpatient (IN) ==
[2019-02-13] MEDS ORDERED: *HR* Dextrose 50 % in Water (Vial) 50 ML VIAL IVP PRN (14:52)
[2019-02-13] MEDS ORDERED: D5% in Water 1,000 ML IVC PRN (14:52)
[2019-02-13] MEDS ORDERED: Dextrose Gel 15 GM/37.5 ML TUBE PO PRN ×2 (14:52)
[2019-02-13 15:42] LABS: Bilirubin,Urine Negative (Negative); Blood,Urine Large (Negative); Clarity,Urine Cloudy (Clear); Color,Urine Amber (Yellow); Glucose,Urine (UA) 500 mg/dL (Normal); Ketones,Urine Negative (Negative); Leukocyte Esterase,Urine Small (Negative); Nitrite,Urine Negative (Negative); Protein,Urine 100 mg/dL (Neg-Trace); Specific Gravity,Urine 1.025 (1.010-1.025); Urobilinogen,Urine Normal (Normal)
[2019-02-13 15:49] LABS: RBC,Urine 15-30 per hpf (0-3)
[2019-02-13 15:50] LABS: Bacteria,Urine Many per hpf (None-Few); Squamous Epithelial Cell,Urine Few per lpf (None-Few)
[2019-02-13] MEDS: Insulin LISPRO 300 UNITS/3 ML VIAL SQ SCH ×2 (17:03→19:51)
[2019-02-13] MEDS: Insulin DETEMIR 100 UNIT/ML X5UNITS SQ SCH (19:50)
[2019-02-14 07:14] LABS: Basophils # 0.1 K/mcL (0.0-0.2); Basophils % 0.6 %; Eosinophils # 0.4 K/mcL (0.0-0.6); Eosinophils % 4.6 %; Hematocrit 42.6 % (35.3-44.9); Hemoglobin 13.3 g/dL (11.5-15.4); Immature Granulocytes % 0.2 % (0-4); Lymphocytes # 2.8 K/mcL (0.6-4.6); Lymphocytes % 34.8 %; Mean Corpuscular HGB Conc 31.2 g/dL (31.6-35.5); Mean Corpuscular Hemoglobin 27.4 pg (28.0-33.3); Mean Corpuscular Volume 87.7 fL (83.0-100.0); Mean Platelet Volume 11.7 fL (9.4-12.4); Monocytes # 0.6 K/mcL (0.0-1.3); Monocytes % 7.9 %; Neutrophils # 4.2 K/mcL (1.6-8.9); Platelet Count 241 K/mcL (140-400); Red Blood Count 4.86 M/mcL (3.82-4.97); Red Cell Distribution Width 15.2 % (11.5-14.5); Segmented Neutrophils % 51.9 %; White Blood Count 8.1 K/mcL (4.3-11.1)
[2019-02-14] MEDS: Insulin LISPRO 300 UNITS/3 ML VIAL SQ SCH ×4 (07:15→20:33)
[2019-02-14 07:24] LABS: Calcium 9.5 mg/dL (8.6-10.3); Potassium 3.6 mEq/L (3.5-5.1)
[2019-02-14] MEDS: Cholecalciferol (D-3) 1,000 UNIT (25MCG) TABLET PO SCH (08:05)
[2019-02-14] MEDS: Diltiazem CD (24hr) 240 MG CAPSULE PO SCH (08:05)
[2019-02-14] MEDS: Fenofibrate 54 MG TABLET PO SCH (08:05)
[2019-02-14] MEDS: Insulin DETEMIR 100 UNIT/ML X5UNITS SQ SCH ×2 (08:06→20:45)
--- NOTE | 2019-02-14 12:26 | Internal Med Progress Note ---
Date of Encounter: 02/14/19 Time of Encounter: 12:18 - Assessment and plan (1) Weakness Current Visit: Yes Status: Acute Assessment and plan: She will have physical therapy and occupational therapy evaluations. (2) Fistula Current Visit: No Status: Chronic Assessment and plan: February 14. She had a fistulogram October 2018 showing the fistula internally ending in soft tissue. Attempted fistulectomy surgery October 2018 unsuccessful. F ollow-up with surgeon as directed. (3) Choledocholithiasis Current Visit: No Status: Chronic Assessment and plan: February 14. MRI/MRCP 02/11/2019 showed multiple filling defects in the common bile duct measuring up to 5 mm compatible with choledocholithiasis but no significant biliary ductal dilatation seen. She is asymptomatic. Her surgeon can discuss treatment options. (4) Hypertension Current Visit: No Status: Chronic Assessment and plan: February 14. Blood pressure improved. Continue present doses of metoprolol and diltiazem. Qualifiers: Hypertension type: essential hypertension Qualified Code(s): I10 - Essential (primary) hypertension (5) Low vitamin D level Current Visit: No Status: Chronic Assessment and plan: February 14. Vitamin D level was low at 7 on 02/10/2019. Continue vitamin D supplementation. (6) CKD (chronic kidney disease) stage 3, GFR 30-59 ml/min Current Visit: Yes Status: Chronic Assessment and plan: February 14. Monitor renal indices. (7) Dementia Current Visit: No Status: Chronic Assessment and plan: February 14. MMSE score of 13/30 on 02/11/2019. Qualifiers: Dementia type: unspecified type Dementia behavioral disturbance: without behavioral disturbance Qualified Code(s): F03.90 - Unspecified dementia without behavioral disturbance (8) DM type 2 (diabetes mellitus, type 2) Current Visit: No Status: Chronic Assessment and plan: February 14. Overall poor control with hemoglobin A1c 15.5% on 02/09/2019. Continue Levemir and add Januvia. Qualifiers: Diabetes mellitus exterminator insulin use: unspecified exterminator insulin use status Diabetes mellitus complication status: without complication Qualified Code(s): E11.9 - Type 2 diabetes mellitus without complications - Subjective Interval history: February 14. She was hospitalized in [facility] acute-care February 22 after presenting with hyperglycemia, weakness, and worsening right upper quadrant discomfort. Blood sugars responded to treatment. Hemoglobin A1c was significantly elevated at 15.1%. Hyponatremia resolved with blood sugar control. Blood pressure medications were increased due to poorly controlled hypertension. She was discharged to swing bed for ongoing care needs. She has no new complaints today and reports she feels better. - Constitutional Vitals: Temp Pulse Resp BP Pulse Ox 97.6 F 59 18 161/88 96 02/14/19 06:42 02/14/19 06:42 02/14/19 06:42 02/14/19 06:42 02/14/19 06:42 Exam: She is resting comfortably in a chair at bedside and appears in no acute distress. Her affect is bright and cheerful. I reviewed her medications and lab results. Internal Medicine: Result - Labs CBC & Chem 7: 02/14/19 06:24 02/14/19 06:24 Labs: Short CBC 02/14/19 Range/Units 06:24 WBC 8.1 (4.3-11.1) K/mcL Hgb 13.3 (11.5-15.4) g/dL Hct 42.6 (35.3-44.9) % Plt Count 241 (140-400) K/mcL Neutrophils # 4.2 (1.6-8.9) K/mcL BMP 02/14/19 06:24 Sodium 140 Potassium 3.6 Chloride 101 Carbon Dioxide 31 H BUN 28 H Creatinine 1.31 H Glucose 85 Calcium 9.5 Urine 02/13/19 Range/Units 15:06 Urine Color Chelsey A (Yellow) Urine Clarity Cloudy A (Clear) Urine pH 5.0 (5.0-8.0) pH Units Ur Specific [place] 1.025 (1.010-1.025) Urine Protein 100 H (Neg-Trace) mg/dL Urine Glucose (UA) 500 H (Normal) mg/dL Consult Discharge Plan - Plan Referrals: Abi Ken CNP [Primary Care Provider] - 1 week
[2019-02-14] MEDS ORDERED: *HR* SitaGLIPtin 25 MG TABLET PO SCH (12:30)
[2019-02-14] MEDS ORDERED: Mag Hydrox/Al Hydrox/Simeth 30 ML UDC PO SCH (23:48)
[2019-02-14] MEDS: Mag Hydrox/Al Hydrox/Simeth 30 ML UDC PO PRN (23:59)
[2019-02-15] MEDS: Mag Hydrox/Al Hydrox/Simeth 30 ML UDC PO PRN (04:52)
[2019-02-15 07:04] LABS: Basophils % 0.4 %; Eosinophils # 0.3 K/mcL (0.0-0.6); Eosinophils % 3.6 %; Hemoglobin 12.3 g/dL (11.5-15.4); Immature Granulocytes % 0.4 % (0-4); Lymphocytes # 1.8 K/mcL (0.6-4.6); Lymphocytes % 26.9 %; Mean Corpuscular HGB Conc 31.5 g/dL (31.6-35.5); Mean Corpuscular Hemoglobin 27.4 pg (28.0-33.3); Mean Corpuscular Volume 86.9 fL (83.0-100.0); Mean Platelet Volume 11.1 fL (9.4-12.4); Monocytes # 0.6 K/mcL (0.0-1.3); Monocytes % 8.6 %; Neutrophils # 4.1 K/mcL (1.6-8.9); Platelet Count 222 K/mcL (140-400); Red Blood Count 4.49 M/mcL (3.82-4.97); Red Cell Distribution Width 15.1 % (11.5-14.5); Segmented Neutrophils % 60.1 %; White Blood Count 6.9 K/mcL (4.3-11.1)
[2019-02-15 07:41] LABS: Calcium 9.3 mg/dL (8.6-10.3); Potassium 4.1 mEq/L (3.5-5.1)
[2019-02-15] MEDS: Cholecalciferol (D-3) 1,000 UNIT (25MCG) TABLET PO SCH (07:49)
[2019-02-15] MEDS: *HR* SitaGLIPtin 25 MG TABLET PO SCH (07:49)
[2019-02-15] MEDS: Diltiazem CD (24hr) 240 MG CAPSULE PO SCH (07:49)
[2019-02-15] MEDS: Insulin DETEMIR 100 UNIT/ML X5UNITS SQ SCH ×2 (07:49→20:44)
[2019-02-15] MEDS: Fenofibrate 54 MG TABLET PO SCH (07:49)
[2019-02-15] MEDS: Insulin LISPRO 300 UNITS/3 ML VIAL SQ SCH ×4 (07:50→20:44)
[2019-02-15] MEDS ORDERED: *HR* SitaGLIPtin 25 MG TABLET PO SCH (09:00)
--- NOTE | 2019-02-15 11:41 | Internal Med Progress Note ---
Date of Encounter: 02/15/19 Time of Encounter: 11:34 - Assessment and plan (1) Weakness Current Visit: Yes Status: Acute Assessment and plan: February 14. She will have physical therapy and occupational therapy evaluations. (2) Fistula Current Visit: No Status: Chronic Assessment and plan: February 14. She had a fistulogram October 2018 showing the fistula internally ending in soft tissue. Attempted fistulectomy surgery October 2018 unsuccessful. Follow-up with surgeon as directed. (3) Choledocholithiasis Current Visit: No Status: Chronic Assessment and plan: February 14. MRI/MRCP 02/11/2019 showed multiple filling defects in the common bile d uct measuring up to 5 mm compatible with choledocholithiasis but no significant biliary ductal dilatation seen. She is asymptomatic. Her surgeon can discuss treatment options. (4) Hypertension Current Visit: No Status: Chronic Assessment and plan: February 14. Blood pressure improved. Continue present doses of metoprolol and diltiazem. Qualifiers: Hypertension type: essential hypertension Qualified Code(s): I10 - Essential (primary) hypertension (5) Low vitamin D level Current Visit: No Status: Chronic Assessment and plan: February 14. Vitamin D level was low at 7 on 02/10/2019. Continue vitamin D supplementation. (6) CKD (chronic kidney disease) stage 3, GFR 30-59 ml/min Current Visit: Yes Status: Chronic Assessment and plan: February 14. Monitor renal indices. (7) Dementia Current Visit: No Status: Chronic Assessment and plan: February 14. MMSE score of 13/30 on 02/11/2019. Qualifiers: Dementia type: unspecified type Dementia behavioral disturbance: without behavioral disturbance Qualified Code(s): F03.90 - Unspecified dementia without behavioral disturbance (8) DM type 2 (diabetes mellitus, type 2) Current Visit: No Status: Chronic Assessment and plan: February 14. Overall poor control with hemoglobin A1c 15.5% on 02/09/2019. Continue Levemir and add Januvia. Qualifiers: Diabetes mellitus box liner insulin use: unspecified box liner insulin use status Diabetes mellitus complication status: without complication Qualified Code(s): E11.9 - Type 2 diabetes mellitus without complications - Subjective Interval history: February 14. She was hospitalized in [facility] acute-care February 22 after presenting with hyperglycemia, weakness, and worsening right upper quadrant discomfort. Blood sugars responded to treatment. Hemoglobin A1c was significantly elevated at 15.1%. Hyponatremia resolved with blood sugar control. Blood pressure medications were increased due to poorly controlled hypertension. She was discharged to swing bed for ongoing care needs. She has no new complaints today and reports she feels better. February 15. She has no new complaints and states she feels "better than ever". - Constitutional Vitals: Temp Pulse Resp BP Pulse Ox 97.9 F 63 16 160/73 97 02/15/19 06:33 02/15/19 06:33 02/15/19 06:33 02/15/19 06:33 02/15/19 06:33 Exam: She is sitting in a chair at bedside resting comfortably. Her affect is bright and cheerful. I reviewed her medications and lab results. Internal Medicine: Result - Labs CBC & Chem 7: 02/15/19 06:55 02/15/19 06:55 Labs: Short CBC 02/15/19 Range/Units 06:55 WBC 6.9 (4.3-11.1) K/mcL Hgb 12.3 (11.5-15.4) g/dL Hct 39.0 (35.3-44.9) % Plt Count 222 (140-400) K/mcL Neutrophils # 4.1 (1.6-8.9) K/mcL BMP 02/15/19 06:55 Sodium 136 Potassium 4.1 Chloride 100 Carbon Dioxide 30 H BUN 31 H Creatinine 1.21 H Glucose 253 H Calcium 9.3 Consult Discharge Plan - Plan Referrals: Abi Ken CNP [Primary Care Provider] - 1 week
[2019-02-15] MEDS: ALPRAZolam 0.25 MG TABLET PO PRN (19:20)
[2019-02-16] MEDS: Ascorbic Acid 500 MG TABLET PO SCH (06:14)
[2019-02-16] MEDS: ALPRAZolam 0.25 MG TABLET PO PRN ×2 (06:14→23:13)
[2019-02-16] MEDS: *HR* SitaGLIPtin 25 MG TABLET PO SCH (08:40)
[2019-02-16] MEDS: Insulin LISPRO 300 UNITS/3 ML VIAL SQ SCH ×4 (08:41→20:10)
[2019-02-16] MEDS: Diltiazem CD (24hr) 240 MG CAPSULE PO SCH (08:41)
[2019-02-16] MEDS: Cholecalciferol (D-3) 1,000 UNIT (25MCG) TABLET PO SCH (08:41)
[2019-02-16] MEDS: Fenofibrate 54 MG TABLET PO SCH (08:42)
[2019-02-16] MEDS: Insulin DETEMIR 100 UNIT/ML X5UNITS SQ SCH (09:05)
--- NOTE | 2019-02-16 18:37 | Internal Med Progress Note ---
Date of Encounter: 02/16/19 Time of Encounter: 18:30 - Assessment and plan (1) Weakness Current Visit: Yes Status: Acute Assessment and plan: February 14. She will have physical therapy and occupational therapy evaluations. (2) Fistula Current Visit: No Status: Chronic Assessment and plan: February 14. She had a fistulogram October 2018 showing the fistula internally ending in soft tissue. Attempted fistulectomy surgery October 2018 unsuccessful. Follow-up with surgeon as directed. (3) Choledocholithiasis Current Visit: No Status: Chronic Assessment and plan: February 14. MRI/MRCP 02/11/2019 showed multiple filling defects in the common bile d uct measuring up to 5 mm compatible with choledocholithiasis but no significant biliary ductal dilatation seen. She is asymptomatic. Her surgeon can discuss treatment options. (4) Hypertension Current Visit: No Status: Chronic Assessment and plan: February 14. Blood pressure improved. Continue present doses of metoprolol and diltiazem. Qualifiers: Hypertension type: essential hypertension Qualified Code(s): I10 - Essential (primary) hypertension (5) Low vitamin D level Current Visit: No Status: Chronic Assessment and plan: February 14. Vitamin D level was low at 7 on 02/10/2019. Continue vitamin D supplementation. (6) CKD (chronic kidney disease) stage 3, GFR 30-59 ml/min Current Visit: Yes Status: Chronic Assessment and plan: February 14. Monitor renal indices. (7) Dementia Current Visit: No Status: Chronic Assessment and plan: February 14. MMSE score of 13/30 on 02/11/2019. February 16. She has severe dementia with cognitive impairment and does not have ad equate insight and judgment to make informed and rational decisions about medical or nonmedical needs. A statement of expert evaluation was completed by me this date for support of appointment of legal guardian. Qualifiers: Dementia type: unspecified type Dementia behavioral disturbance: without behavioral disturbance Qualified Code(s): F03.90 - Unspecified dementia without behavioral disturbance (8) DM type 2 (diabetes mellitus, type 2) Current Visit: No Status: Chronic Assessment and plan: February 14. Overall poor control with hemoglobin A1c 15.5% on 02/09/2019. Continue Levemir and add Januvia. February 16. Blood sugars remain above desirable level. Increase Levemir to 35 units twice a day. Continue Januvia. Qualifiers: Diabetes mellitus alf insulin use: unspecified alf insulin use status Diabetes mellitus complication status: without complication Qualified Code(s): E11.9 - Type 2 diabetes mellitus without complications - Subjective Interval history: February 14. She was hospitalized in [facility] acute-care February 22 after presenting with hyperglycemia, weakness, and worsening right upper quadrant discomfort. Blood sugars responded to treatment. Hemoglobin A1c was significantly elevated at 15.1%. Hyponatremia resolved with blood sugar control. Blood pressure medic ations were increased due to poorly controlled hypertension. She was discharged to [facility] bed for ongoing care needs. She has no new complaints today and reports she feels better. February 15. She has no new complaints and states she feels "better than ever". February 16. She has no new complaints. - Constitutional Vitals: Temp Pulse Resp BP Pulse Ox 97.6 F 67 16 153/68 97 02/16/19 06:33 02/16/19 06:33 02/16/19 06:33 02/16/19 06:33 02/16/19 08:59 Exam: She is resting comfortably in bed and appears in no acute distress. She does not know the day, month, year, her age, or length of stay. I reviewed her m edications and lab results. Internal Medicine: Result - Labs CBC & Chem 7: 02/15/19 06:55 02/15/19 06:55 Consult Discharge Plan - Plan Referrals: Abi Ken CNP [Primary Care Provider] - 1 week
[2019-02-16] MEDS ORDERED: Insulin DETEMIR 100 UNIT/ML per UNIT SQ ONE (21:00)
[2019-02-17] MEDS: Ascorbic Acid 500 MG TABLET PO SCH (08:37)
[2019-02-17] MEDS: Fenofibrate 54 MG TABLET PO SCH (08:37)
[2019-02-17] MEDS: Insulin LISPRO 300 UNITS/3 ML VIAL SQ SCH ×4 (08:37→20:06)
[2019-02-17] MEDS: *HR* SitaGLIPtin 25 MG TABLET PO SCH (08:37)
[2019-02-17] MEDS: Cholecalciferol (D-3) 1,000 UNIT (25MCG) TABLET PO SCH (08:37)
[2019-02-17] MEDS: Diltiazem CD (24hr) 240 MG CAPSULE PO SCH (08:37)
[2019-02-17] MEDS: Insulin DETEMIR 100 UNIT/ML X5UNITS SQ SCH ×2 (09:01→20:12)
[2019-02-17] MEDS: ALPRAZolam 0.25 MG TABLET PO PRN (19:55)
[2019-02-18] MEDS: traMADol 50 MG TABLET PO PRN ×2 (01:07→08:42)
[2019-02-18] MEDS: ALPRAZolam 0.25 MG TABLET PO PRN ×2 (06:01→19:57)
[2019-02-18] MEDS: Ascorbic Acid 500 MG TABLET PO SCH (06:01)
[2019-02-18] MEDS: *HR* SitaGLIPtin 25 MG TABLET PO SCH (08:41)
[2019-02-18] MEDS: Insulin LISPRO 300 UNITS/3 ML VIAL SQ SCH ×4 (08:42→19:57)
[2019-02-18] MEDS: Cholecalciferol (D-3) 1,000 UNIT (25MCG) TABLET PO SCH (08:42)
[2019-02-18] MEDS: Fenofibrate 54 MG TABLET PO SCH (08:42)
[2019-02-18] MEDS: Diltiazem CD (24hr) 240 MG CAPSULE PO SCH (08:42)
[2019-02-18] MEDS: Insulin DETEMIR 100 UNIT/ML X5UNITS SQ SCH ×2 (08:43→19:57)
[2019-02-18] MEDS: cloNIDine HCl 0.1 MG TABLET PO SCH (19:57)
[2019-02-19] MEDS: Ascorbic Acid 500 MG TABLET PO SCH (06:41)
[2019-02-19] MEDS: Insulin LISPRO 300 UNITS/3 ML VIAL SQ SCH ×2 (07:54→11:51)
[2019-02-19] MEDS: *HR* SitaGLIPtin 25 MG TABLET PO SCH (09:44)
[2019-02-19] MEDS: Fenofibrate 54 MG TABLET PO SCH (09:44)
[2019-02-19] MEDS: Cholecalciferol (D-3) 1,000 UNIT (25MCG) TABLET PO SCH (09:44)
[2019-02-19] MEDS: Diltiazem CD (24hr) 240 MG CAPSULE PO SCH (09:44)
[2019-02-19] MEDS: cloNIDine HCl 0.1 MG TABLET PO SCH (09:44)
[2019-02-19] MEDS: Insulin DETEMIR 100 UNIT/ML X5UNITS SQ SCH (09:44)
--- NOTE | 2019-02-19 14:38 | Discharge Summary ---
Date of Encounter: 02/19/19 Time of Encounter: 14:28 - Discharge Diagnosis (1) Weakness Priority: Primary Status: Acute (2) Fistula Priority: Secondary Status: Chronic (3) Choledocholithiasis Priority: Secondary Status: Chronic (4) Hypertension Priority: Secondary Status: Chronic Qualifiers: Hypertension type: essential hypertension Qualified Code(s): I10 - Essential (primary) hypertension (5) Low vitamin D level Priority: Secondary Status: Chronic (6) CKD (chronic kidney disease) stage 3, GFR 30-59 ml/min Priority: Secondary Status: Chronic (7) Dementia Priority: Secondary Status: Chronic Qualifiers: Dementia type: unspecified type Dementia behavioral disturbance: without behavioral disturbance Qualified Code(s): F03.90 - Unspecified dementia without behavioral disturbance (8) DM type 2 (diabetes mellitus, type 2) Priority: Secondary Status: Chronic Qualifiers: Diabetes mellitus ferry terminal supervisor insulin use: unspecified prison insulin use status Diabetes mellitus complication status: without complication Qualified Code(s): E11.9 - Type 2 diabetes mellitus without complications Hospital course: Ms. Cortez is a 78 year old female who was hospitalized in [facility] acute-care February 22 after presenting with hyperglycemia, weakness, and worsening right upper quadrant discomfort. Blood sugars responded to treatment. Hemoglobin A1c was significantly elevated at 15.1%. Hyponatremia resolved with blood sugar control. Blood pressure medications were increased due to poorly controlled hypertension. She was discharged to swing bed for ongoing care needs. She continued physical therapy and occupational therapy evaluations with ongoing intervention. She made satisfactory progress. It was felt she needed ongoing supervision and intervention for care needs due to significant dementia. A court appointed legal guardian form was completed and she was approved to go to [facility] [place] on February 19 for continuing care needs. Clonidine was added to metoprolol and diltiazem for blood pressure control. She will continue this regimen at discharge. She will continue vitamin D supplementation since vitamin D level was low at 7 on 02/10/2019. Blood sugar showed acceptable readings on Levemir 35 units twice a day. This will be continued at discharge with Esthela. - Time Spent with Patient Total time spent providing and/or coordinating discharge services: - Discharge Medications Prescriptions: New Diltiazem CD (24hr) [Cardizem CD] 240 mg PO DAILY cap.er.24h cloNIDine HCl [CloNIDine HCl] 0.1 mg PO BID tablet Ferrous Sulfate 325 mg PO 0630 tablet Insulin DETEMIR [Levemir] 35 unit SQ BID [id number] Ascorbic Acid [Vitamin C] 500 mg PO 0630 tablet Cholecalciferol (D-3) [Vitamin D] 5,000 unit PO DAILY tablet SitaGLIPtin [Januvia] 50 mg PO DAILY tablet Continued Amitriptyline [Elavil] 25 mg PO HS Atorvastatin [Lipitor] 20 mg PO HS Fenofibrate [Tricor] 54 mg PO DAILY Insulin DETEMIR [Levemir] 0 unit Metoprolol [Lopressor] 25 mg PO BID Ferrous Sulfate [Iron] 325 mg PO DAILY #0 Discontinued Pantoprazole Sodium 40 mg PO DAILY Lisinopril [Zestril] 20 mg PO DAILY Diltiazem HCl [Diltiazem 24Hr Cd] 120 mg PO DAILY Home Medications: Amitriptyline [Elavil] 25 mg PO HS 02/10/19 [History] Atorvastatin [Lipitor] 20 mg PO HS 02/10/19 [History] Fenofibrate [Tricor] 54 mg PO DAILY 02/10/19 [History] Insulin DETEMIR [Levemir] 0 unit 02/10/19 [History] Metoprolol [Lopressor] 25 mg PO BID 02/13/19 [History] Ascorbic Acid [Vitamin C] 500 mg PO 0630 tablet 02/19/19 [Rx] Cholecalciferol (D-3) [Vitamin D] 5,000 unit PO DAILY tablet 02/19/19 [Rx] Diltiazem CD (24hr) [Cardizem CD] 240 mg PO DAILY cap.er.24h 02/19/19 [Rx] Ferrous Sulfate 325 mg PO 0630 tablet 02/19/19 [Rx] Ferrous Sulfate [Iron] 325 mg PO DAILY #0 02/19/19 [Rx] Insulin DETEMIR [Levemir] 35 unit SQ BID [id number] 02/19/19 [Rx] SitaGLIPtin [Januvia] 50 mg PO DAILY tablet 02/19/19 [Rx] cloNIDine HCl [CloNIDine HCl] 0.1 mg PO BID tablet 02/19/19 [Rx] Allergies/Adverse Reactions: Allergy/AdvReac Type Severity Reaction Status Date / Time No Known Allergies Allergy Verified 05/07/17 19:19 Date of admission: 02/13/19 14:23 Primary care physician: Abi Ken Consults: 02/13/19 14:13 Consult to Physical Therapy [CONS] Routine Comment: Evaluate, develop and implement POC Reason for Consult: weakness Does patient have active BEDREST order?: No Is patient medically & hemodynamically stable?: Yes Patient assessed for mobility or mobilized this visit?: Yes Consult to Supervisor Inspecting [CONS] Routine Reason for SW Consult: discharge planning OT [Consult to Occupational Therapy] [CONS] Routine Comment: Evaluate, develop and implement POC Reason for Consult: weakness Does patient have active BEDREST order?: No Is patient medically & hemodynamically stable?: Yes Patient assessed for mobility or mobilized this visit?: Yes - Constitutional Vitals: Temp Pulse Resp BP Pulse Ox 97.6 F 52 16 122/61 99 02/19/19 11:41 02/19/19 11:41 02/19/19 11:41 02/19/19 11:41 02/19/19 11:41 - Patient Status Disposition: Transfer SNF - Discharge Instructions - Diet and Activity Activity: as per physical therapy Diet: diabetic diet
--- NOTE | 2019-02-19 14:47 | Physician Discharge Referral ---
ExtendedCare Referral Info Transfer To: [facility] Provider in Charge: Otto Provider in Charge after Transfer: PCP (Otto) - Diagnosis (1) Weakness Priority: Primary Status: Acute (2) Fistula Priority: Secondary Status: Chronic (3) Choledocholithiasis Priority: Secondary Status: Chronic (4) Hypertension Priority: Secondary Status: Chronic (5) Low vitamin D level Priority: Secondary Status: Chronic (6) CKD (chronic kidney disease) stage 3, GFR 30-59 ml/min Priority: Secondary Status: Chronic (7) Dementia Priority: Secondary Status: Chronic (8) DM type 2 (diabetes mellitus, type 2) Priority: Secondary Status: Chronic Prognosis: Fair Aware of Diagnosis: Patient Aware of Prognosis: Patient - Transfer Medications Home Medications: Amitriptyline [Elavil] 25 mg PO HS 02/10/19 [History] Atorvastatin [Lipitor] 20 mg PO HS 02/10/19 [History] Fenofibrate [Tricor] 54 mg PO DAILY 02/10/19 [History] Insulin DETEMIR [Levemir] 0 unit 02/10/19 [History] Metoprolol [Lopressor] 25 mg PO BID 02/13/19 [History] Ascorbic Acid [Vitamin C] 500 mg PO 0630 tablet 02/19/19 [Rx] Cholecalciferol (D-3) [Vitamin D] 5,000 unit PO DAILY tablet 02/19/19 [Rx] Diltiazem CD (24hr) [Cardizem CD] 240 mg PO DAILY cap.er.24h 02/19/19 [Rx] Ferrous Sulfate 325 mg PO 0630 tablet 02/19/19 [Rx] Ferrous Sulfate [Iron] 325 mg PO DAILY #0 02/19/19 [Rx] Insulin DETEMIR [Levemir] 35 unit SQ BID [id number] 02/19/19 [Rx] SitaGLIPtin [Januvia] 50 mg PO DAILY tablet 02/19/19 [Rx] cloNIDine HCl [CloNIDine HCl] 0.1 mg PO BID tablet 02/19/19 [Rx] Allergies/Adverse Reactions: Allergy/AdvReac Type Severity Reaction Status Date / Time No Known Allergies Allergy Verified 05/07/17 19:19 - Respiratory Orders Smoking Cessation: Smoking cessation has been advised. For more information, call the [place] Tobacco Quit Line at 3-032-SHER-NOW. - Lab Orders Lab Orders: Other (include drug levels w/frequency) (CBC with differential, CMP, iron profile, 25 [place] vitamin D level in 2 weeks) - Advance Directives Code Status: Full Code - Mobility Orders Other (Walker ambulation with assistance) - Rehabiliation Orders Rehab Potential: Fair Rehab Orders: Evaluation for Physical Therapy, Evaluation for Occupational Therapy - Diet Orders No Concentrated Sweets CERTIFICATION: I certify that the transfer of the above named patient to an Extended Care Facility is necessary for the continuing treatment of the diagnosis listed. The above information is true and accurate reflection of patient's current condition. Confidential - Redisclosure prohibited without a patient's written consent.
[2019-02-19 15:23] VITALS: BP 136/77
== END 2019-02-19 16:05 | DRG 945 ==
LOC: INPPIK 14:23
PROVIDERS: ADMIT Internal Medicine; ATTEND Internal Medicine